=== PATIENT | female | born 1950 | race Caucasian/White ===

== ENCOUNTER 2019-07-28 06:26 | Day surgery (SDC) | payer MEDICARE ==
[~2019-07-28 06:26] MED LIST: Buffered Lidocaine 1% SYRIN* 1 ML/SYRINGE INTRADERM ONE
[2019-07-28] MEDS ORDERED: Midazolam* 1 MG/ML 2 ML VIAL (2 MG) ONE ×2 (07:44→07:49)
[2019-07-28 08:35] VITALS: BP 129/61
[2019-07-28] MEDS ORDERED: Cyclopentolate 1% OPTH.SOL* 2 ML BTL ONE (09:17)
[2019-07-28] MEDS ORDERED: Phenylephrine OPHTH SOL 2.5%* 2 ML ONE (09:17)
[2019-07-28] MEDS ORDERED: Ketorolac 0.5% OPHTH (NF) 0.5 % 5 ML BTL ONE (09:17)
[2019-07-28] MEDS ORDERED: Povidone Iodine 5% OPTH* 30 ML BTL ONE (09:17)
[2019-07-28] MEDS ORDERED: Lidocaine 1% MPF ** 5 ML VIAL ONE (09:17)
[2019-07-28] MEDS ORDERED: Proparacaine 0.5% OPHTH.SOL* 15 ML BTL ONE (09:17)
[2019-07-28] MEDS ORDERED: Lidocaine 2% w/ EPI 1:200,000* 20 ML SDV VIAL ONE (09:17)
[2019-07-28] MEDS ORDERED: Neomycin/Polymy/Dex OPTH.SUSP* MAXITROL 0.1% 5 ML ONE (09:17)
[2019-07-28] MEDS ORDERED: acetaZOLAMIDE TAB* 250 MG ONE (09:17)
--- NOTE | 2019-07-28 11:39 | OP ---
OPERATIVE NOTE: DATE OF OPERATION: 07/28/19 DATE OF : 52 SURGEON: Huy Robledo M.D. PREOPERATIVE DIAGNOSIS: Cataract, left eye. POSTOPERATIVE DIAGNOSIS: Cataract, left eye. OPERATIVE PROCEDURE: Extracapsular cataract extraction with intraocular lens implant, left eye. PROCEDURE: The patient was brought to the operating room after being given 1/2% Alcaine with epineph rine drops in the preoperative area. The eye was prepped and draped in the usual sterile fashion. S terile drape and eyelid speculum were placed. Again, topical 1/2% Alcaine with epinephrine was given . A paracentesis incision was made at the 3 o'clock position with the No.75 blade. Clear cornea inc ision 2.2 x 2.2-mm was created at the 6 o'clock position starting at the anterior limbus using the 2. 2-mm keratome. The anterior chamber was irrigated with 0.4 mL of 1% non-preservative intracameral li docaine and filled with DisCoVisc. A capsulorrhexis was completed using the cystotome and the Utrata forceps. Hydrodissection was performed with balanced salt solution. The lens nucleus was removed wi th the Phacoemulsification handpiece without incident. Cortex was removed with the irrigation-aspira tion handpiece. The capsular bag was re-inflated using DisCoVisc and an [id number] 17.5 implant was ins erted with the shooter, oriented to the 107 degree meridian. All measurements were confirmed with OR A. The irrigation-aspiration handpiece was used to remove all residual DisCoVisc. The eye was refil led with balanced salt solution and the wound checked and found to be watertight. Topical Maxitrol d rops were given. [id number]/[id number] #: [id number]
== END 2019-07-28 08:28 | disposition home or self-care (01) ==
LOC: OREAST 06:26
PROVIDERS: ATTEND Specialist
DX: H25.12 Age-related nuclear cataract, left eye (principal); H52.202 Unspecified astigmatism, left eye; E11.9 Type 2 diabetes mellitus without complications; Z79.84 Long term (current) use of oral hypoglycemic drugs; I10 Essential (primary) hypertension
CPT/HCPCS: A9270-GY; J2250; V2787

== ENCOUNTER 2020-09-27 17:58 | Inpatient (IN) ==
[2020-09-27 19:33] LABS: ABS Eosinophils 0.3 10^3/ul (0-0.6); ABS Lymphocytes 0.6 10^3/ul (1.0-4.8); ABS Monocytes 0.4 10^3/ul (0-0.8); ABS Neutrophils 7.1 10^3/ul (1.5-7.7); Eosinophil % 4.1 %; Hematocrit 32 % (35-47); Lymphocyte % 7.6 %; Mean Corpuscular HGB Conc 34 g/dL (31-36); Mean Corpuscular Hemoglobin 31 pg (27-31); Mean Corpuscular Volume 91 fL (80-97); Mean Platelet Volume 6.2 fL (7.4-10.4); Platelet Count 415 10^3/uL (150-450); Red Blood Count 3.57 10^6 /uL (3.70-4.87); Red Cell Distribution Width 14 % (10-15); White Blood Count 8.5 10^3/uL (3.5-10.8)
[2020-09-27 19:41] LABS: INR 1.03 (0.82-1.09)
[2020-09-27 19:44] LABS: Influenza A Molecular Negative (Negative); Influenza B Molecular Negative (Negative)
[2020-09-27] MEDS ORDERED: Dexamethasone IV 4 MG/ML VIAL 1 ml VIAL IV SLOW PU ONE (19:56)
[2020-09-27 20:00] LABS: ALT 198 U/L (7-52); AST 380 U/L (13-39); Albumin 2.8 g/dL (3.2-5.2); Alkaline Phosphatase 39 U/L (34-104); Anion Gap 6 mmol/L (2-11); C Reactive Protein 45.17 mg/L (<8.01); CO2 Carbon Dioxide 23 mmol/L (22-32); Calcium 8.3 mg/dL (8.6-10.3); Chloride 101 mmol/L (101-111); EGFR African American 111.7 (>60); EGFR Non-African American 92.3 (>60); Globulin 2.7 g/dL (2-4); Glucose 111 mg/dL (70-100); Sodium 130 mmol/L (135-145); Total Protein 5.5 g/dL (6.4-8.9)
[2020-09-27 20:08] LABS: LDH 814 U/L (140-271)
[2020-09-27 20:09] LABS: Troponin I 0.09 ng/mL (<0.03)
[2020-09-27 20:19] LABS: BUN/Creatinine Ratio 32.8 (8-20); Blood Urea Nitrogen 21 mg/dL (6-24)
[2020-09-27 20:28] LABS: Ferritin 816.5 ng/mL (11-307)
[2020-09-27] MEDS ORDERED: Ondansetron 4 mg VIAL 2 MG/ML 2 ml VIAL IV PRN (21:52)
[2020-09-27] MEDS ORDERED: Dextrose 50% Syringe 50 ml 25 GM/50 ML SYRINGE IV PUSH PRN (21:57)
[2020-09-27 22:26] LABS: Creatine Kinase 6348 U/L (10-223)
[2020-09-27 23:08] LABS: Erythrocyte Sed Rate 39 mm/Hr (0-29)
[2020-09-27] MEDS ORDERED: Iodixanol (CONTRAST) 320 MG/ML 100 ML SDV IV ONE ×2 (23:34→23:59)
[2020-09-28 00:41] LABS: Troponin I 0.08 ng/mL (<0.03)
[2020-09-28 03:41] LABS: Hematocrit 35 % (35-47); Hemoglobin 11.7 g/dL (12.0-16.0); Mean Corpuscular HGB Conc 33 g/dL (31-36); Mean Corpuscular Hemoglobin 31 pg (27-31); Mean Corpuscular Volume 92 fL (80-97); Mean Platelet Volume 6.3 fL (7.4-10.4); Platelet Count 424 10^3/uL (150-450); Red Blood Count 3.85 10^6 /uL (3.70-4.87); Red Cell Distribution Width 14 % (10-15); White Blood Count 9.7 10^3/uL (3.5-10.8)
[2020-09-28 03:48] LABS: INR 1.04 (0.82-1.09)
[2020-09-28 03:58] LABS: Albumin 2.7 g/dL (3.2-5.2); Albumin/Globulin Ratio 0.9 (1-3); BUN/Creatinine Ratio 29.7 (8-20); Calcium 8.3 mg/dL (8.6-10.3); EGFR African American 111.7 (>60); EGFR Non-African American 92.3 (>60); Indirect Bilirubin 0.3 mg/dL (0.3-1.0); Potassium 4.7 mmol/L (3.5-5.0); Total Bilirubin 0.4 mg/dL (0.2-1.0); Total Protein 5.7 g/dL (6.4-8.9)
[2020-09-28 04:04] LABS: Troponin I 0.08 ng/mL (<0.03)
[2020-09-28 04:32] LABS: ABS Eosinophils 0.1 10^3/ul (0-0.6); ABS Lymphocytes 0.8 10^3/ul (1.0-4.8); ABS Monocytes 0.2 10^3/ul (0-0.8); ABS Neutrophils 8.6 10^3/ul (1.5-7.7); Eosinophil % 0.6 %; Lymphocyte % 7.9 %
[2020-09-28] MEDS: Heparin 5000 UNITS/ML 1 mL VIAL SUBCUT SCH ×4 (05:00→21:06)
[2020-09-28] MEDS ORDERED: Lidocaine 1% VIAL 10 MG/ML VIAL ONE (11:18)
[2020-09-28] MEDS ORDERED: Bupivacaine 0.25% EPI 200,000 30 ML SDV ONE ×2 (11:19→11:24)
[2020-09-29] MEDS: Heparin 5000 UNITS/ML 1 mL VIAL SUBCUT SCH ×2 (04:57→13:47)
[2020-09-29 05:31] LABS: Hematocrit 30 % (35-47); Hemoglobin 9.9 g/dL (12.0-16.0); Mean Corpuscular HGB Conc 33 g/dL (31-36); Mean Corpuscular Hemoglobin 30 pg (27-31); Mean Corpuscular Volume 91 fL (80-97); Mean Platelet Volume 6.5 fL (7.4-10.4); Platelet Count 422 10^3/uL (150-450); Red Blood Count 3.27 10^6 /uL (3.70-4.87); Red Cell Distribution Width 14 % (10-15); White Blood Count 12.6 10^3/uL (3.5-10.8)
[2020-09-29 05:42] LABS: Albumin 2.5 g/dL (3.2-5.2); BUN/Creatinine Ratio 34.3 (8-20); EGFR African American 105.9 (>60); EGFR Non-African American 87.5 (>60); Globulin 2.6 g/dL (2-4); Potassium 3.9 mmol/L (3.5-5.0); Total Bilirubin 0.3 mg/dL (0.2-1.0); Total Protein 5.1 g/dL (6.4-8.9)
[2020-09-29 07:39] LABS: ABS Lymphocytes 1.1 10^3/ul (1.0-4.8); ABS Monocytes 0.5 10^3/ul (0-0.8); ABS Neutrophils 10.9 10^3/ul (1.5-7.7); Eosinophil % 0.4 %; Lymphocyte % 8.8 %; Nucleated Red Blood Cells % 0.1
[2020-09-29 11:11] LABS: Urine Appearance Cloudy; Urine Bilirubin Negative (Negative); Urine Blood 2+ (Negative); Urine Color Yellow; Urine Glucose Negative (Negative); Urine Ketones Negative (Negative); Urine Nitrite Negative (Negative); Urine Protein Negative (Negative); Urine Specific Gravity 1.018 (1.010-1.030); Urine Urobilinogen Negative (Negative)
[2020-09-29 11:18] LABS: Urine Bacteria Absent (Absent); Urine Red Blood Cell Trace(0-2/hpf) (Absent); Urine Squamous Epithelial Cell Present (Absent); Urine Transitional Epithelial Present (Absent); Urine White Blood Cell 2+(11-20/hpf) (Absent)
[2020-09-29 16:06] VITALS: BP 123/72
[2020-10-03 09:41] LABS: JO-1 Antibody >8.0 U; Procalcitonin, S <0.10 ng/mL (<=0.15)
[2020-10-03 10:32] LABS: Cytomegalovirus IgG Antibody Negative (Negative)
== END 2020-09-29 18:45 | disposition home or self-care (01) | DRG 987 ==
LOC: ED 17:58 → MED 22:31
PROVIDERS: ADMIT Student in an Organized Health Care Education/Training Program; ATTEND Internal Medicine